=== PATIENT | female | born 1945 | race Caucasian/White ===

== ENCOUNTER 2017-04-28 12:29 | Outpatient (CLI) | payer MEDICARE ==
[2017-04-28 13:34] LABS: Hemoglobin 15.2 g/dL (12.0-16.0); Mean Corpuscular HGB CONC 34.9 g/dL (32.0-36.0); Mean Platelet Volume 8.8 fL (7.4-10.4); Platelet Count 175 thou/uL (130-400); Red Blood Cell (RBC) Count 4.36 mill/uL (4.20-5.40); White Blood Cell (WBC) Count 6.5 thou/uL (4.8-10.8)
[2017-04-28 13:59] LABS: Anion Gap 12 mmol/L (10-20); BUN (Urea Nitrogen) 10 mg/dL (9.8-20.1); Calc. Creatinine Clearance 0 mL/min (70-130); Calcium 9.4 mg/dL (7.8-10.44); Carbon Dioxide 26 mmol/L (23-31); Chloride 103 mmol/L (98-107); Estimated GFR-MDRD 42; Glucose 88 mg/dL (80-115); Potassium 3.7 mmol/L (3.5-5.1); Sodium 137 mmol/L (136-145)
--- NOTE | 2017-04-30 00:20 | EKG ---
Test Reason : Blood Pressure : / mmHG Vent. Rate : 066 BPM Atrial Rate : 066 BPM P-R Int : 140 ms QRS Dur : 142 ms QT Int : 478 ms P-R-T Axes : 009 -15 011 degrees QTc Int : 501 ms Normal sinus rhythm Right bundle branch block Abnormal ECG Confirmed by Junior VORA ([id number]) on 04/30/2017 12:20:32 AM Referred By: VICKY Confirmed By:Junior VORA
== END 2017-04-28 12:30 | disposition home or self-care (01) ==
LOC: LABBT 12:29
PROVIDERS: ATTEND Orthopaedic Surgery
DX: Z01.810 Encounter for preprocedural cardiovascular examination (principal); Z01.812 Encounter for preprocedural laboratory examination; S83.242A Other tear of medial meniscus, current injury, left knee, initial encounter
CPT/HCPCS: 80048; 85027; 93005; 93010

== ENCOUNTER 2017-04-30 08:00 | Day surgery (SDC) | payer MEDICARE ==
[2017-04-28 12:48] VITALS: BMI 29.2
[2017-04-30] MEDS ORDERED: CEFAZOLIN/Water 2 GM/20 ML SYRINGE ONE (09:00)
[2017-04-30] MEDS ORDERED: Diprivan 20 ML ONE (09:42)
[2017-04-30] MEDS ORDERED: Fentanyl 100 MCG/2 ML VIAL ONE (10:56)
[2017-04-30] MEDS ORDERED: Midazolam HCl 2 mg/2 ml Vial ONE (10:56)
[2017-04-30] MEDS ORDERED: Bupivacaine PF 0.5% 30 ML VIAL ONE ×2 (11:01→13:47)
[2017-04-30] MEDS ORDERED: Lidocaine 2% w/Epinephrine 1:200K 20 ML VIAL ONE (13:47)
[2017-04-30] MEDS ORDERED: Bupivacaine HCl 0.5%/Epinephrine 1:200,000/PF 30 ml Vial ONE (13:47)
--- NOTE | 2017-04-30 14:30 | OP ---
PREOPERATIVE DIAGNOSIS: Medial meniscus tear. POSTOPERATIVE DIAGNOSIS: Medial meniscus tear. SURGEON: Beck Bailey M.D. ANESTHESIA: General. BLOOD LOSS: Minimal. SPECIMEN: None. DRAINS: None. COMPLICATIONS: None. TITLE OF THE PROCEDURE: Arthroscopic partial medial meniscectomy, left knee. 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 Some gra de 2 and 3 chondromalacia at the medial femoral condyle, intact lateral compartment, intact ACL, inta ct patellofemoral joint. Scope was placed in the lateral portal and probe was placed in medial romeo l. I performed a partial medial meniscectomy using basket forceps. This was smoothed using a 4-0 ful l radius resector. I had to approach the meniscus from both medial and lateral portals and I was abl e to get this back to a stable rim. The meniscus probed and confirmed to be stable. Knee was then d rained. I had to put a single stitch in the lateral compartment due to some bleeding from the superf icial vein. Sterile dressings applied.
== END 2017-04-30 14:08 | disposition home or self-care (01) ==
LOC: SDC 08:00
PROVIDERS: ATTEND Orthopaedic Surgery
PROC: 0SBD4ZZ Excision of Left Knee Joint, Percutaneous Endoscopic Approach (ICD-10-PCS; principal; 2017-04-30)
DX: S83.242A Other tear of medial meniscus, current injury, left knee, initial encounter (principal); M94.262 Chondromalacia, left knee; G43.909 Migraine, unspecified, not intractable, without status migrainosus; K21.9 Gastro-esophageal reflux disease without esophagitis; G62.9 Polyneuropathy, unspecified; I10 Essential (primary) hypertension; M19.90 Unspecified osteoarthritis, unspecified site; F32.9 Major depressive disorder, single episode, unspecified; K76.0 Fatty (change of) liver, not elsewhere classified; F17.210 Nicotine dependence, cigarettes, uncomplicated; M54.9 Dorsalgia, unspecified; G89.29 Other chronic pain; Z79.890 Hormone replacement therapy; Z79.899 Other long term (current) drug therapy; Z91.041 Radiographic dye allergy status; Z91.048 Other nonmedicinal substance allergy status; Z98.41 Cataract extraction status, right eye; Z98.42 Cataract extraction status, left eye; Z96.1 Presence of intraocular lens; Z90.710 Acquired absence of both cervix and uterus; Z90.49 Acquired absence of other specified parts of digestive tract; Z90.89 Acquired absence of other organs; Z98.890 Other specified postprocedural states; Z86.19 Personal history of other infectious and parasitic diseases
CPT/HCPCS: 29881; 97139; G8978; G8979; G8980; J2250; J2704; J3010; S0020